=== PATIENT | female | born 1970 | race Caucasian/White ===

== ENCOUNTER → 2018-01-16 | Outpatient (REF) | payer OTHER ==
[2018-01-17 12:20] LABS: HEPATITIS C VIRUS ABY INDEX 0.1 INDEX (<0.8)
== END ==
LOC: M LAB REF 11:00
DX: L81.8 Other specified disorders of pigmentation (principal)
CPT/HCPCS: 86803

== ENCOUNTER 2018-07-15 11:30 | Emergency (ER) | payer OTHER ==
[~2018-07-15] VITALS: Ht 177.8 cm; Wt 126.4 kg
[2018-07-15] MEDS ORDERED: PARO40TA2 (11:41)
[2018-07-15] MEDS ORDERED: ALBU83IN (11:41)
[2018-07-15] MEDS ORDERED: COMBAER6 (11:41)
[2018-07-15] MEDS ORDERED: PROAAER10 (11:41)
[2018-07-15] MEDS ORDERED: LEVO25TA5 (11:41)
[2018-07-15] MEDS ORDERED: LOSARTAN/HCT PO (11:41)
[2018-07-15] MEDS ORDERED: predniSONE 20 MG TAB PO ONE (12:00)
[2018-07-15] MEDS ORDERED: ALBUTEROL SULFATE 2.5 MG/0.5 ML INH NEB SOLN NEB ONE (12:00)
[2018-07-15] MEDS ORDERED: IPRATROPIUM 0.5MG/ALBUTEROL 2.5MG INH SOL UD 3ML (DUONEB)(J7620) NEB ONE (12:00)
[2018-07-15] MEDS ORDERED: IPRA0.00 NEB (12:40)
[2018-07-15] MEDS ORDERED: MUCI600T37 PO (12:40)
[2018-07-15] MEDS ORDERED: PRED10TA2 PO (12:40)
[2018-07-15 13:22] VITALS: BP 136/71
--- NOTE | 2018-07-15 14:12 | REP ---
CHEST, TWO VIEWS: Two views of the chest are performed. There is no acute infiltrate. Heart is normal in size. Mediastinal silhouette is unremarkable and unchanged. There are mild degenerative changes of the spine. There is a rounded sclerotic density in the proximal right humerus. This area is not imaged on the prior chest radiograph of 01/08/2009. This may represent a benign bone island. IMPRESSION: No acute infiltrate. Sclerotic density proximal humerus 1.5 cm in diameter may represent a benign bone island. Recommend further evaluation with bone scan or MRI with contrast. Electronically Signed by Jacob Perez MD 07/15/2018 07:06 P
--- NOTE | 2018-07-17 08:57 | ED PDOC ---
Post-Departure Follow-Up dr gooden faxed formal report of cxr fo rfu Leidy oJ MD Jul 17, 2018 08:57
== END 2018-07-15 13:24 | disposition home or self-care (01) ==
LOC: M ED 11:30
DX: J45.901 Unspecified asthma with (acute) exacerbation (principal); I10 Essential (primary) hypertension; E03.9 Hypothyroidism, unspecified; F41.9 Anxiety disorder, unspecified; Z87.891 Personal history of nicotine dependence; Z91.048 Other nonmedicinal substance allergy status; Z88.2 Allergy status to sulfonamides; Z91.018 Allergy to other foods; Z79.890 Hormone replacement therapy; Z79.899 Other long term (current) drug therapy

== ENCOUNTER → 2018-08-09 | Outpatient (CLI) | payer OTHER ==
[~2018-08-09] MED LIST: ALBU83IN; COMBAER6; IPRA0.00 NEB; LEVO25TA5; LOSARTAN/HCT PO; MUCI600T37 PO; PARO40TA2; PRED10TA2 PO; PROAAER10
--- NOTE | 2018-08-09 15:39 | REP ---
WHOLE BODY BONE SCAN: Following the intravenous administration of 21.1 mCi of technetium 99m MDP, the patient's whole body is imaged in the anterior and posterior projections with additional oblique and lateral views. There are no prior studies for comparison. Recent chest radiograph showed a sclerotic density in the proximal right humerus. No abnormal uptake is seen in the proximal right humerus. There is mild increased uptake in the region of the L3-4 disc space mainly on the right side most consistent with arthritic uptake. There also appears to be arthritic uptake in the knees and feet. There is no definite scintigraphic evidence of suspicious osseous uptake or metastatic disease. Renal and bladder activity are seen. IMPRESSION: No abnormal uptake in the proximal right humerus. The sclerotic density in the proximal right humerus on the recent chest radiograph therefore is not felt to be metabolically active or suspicious. There is no compelling scintigraphic evidence of osseous metastases. There appears to be scattered arthritic uptake as discussed above. Electronically Signed by Jacob Perez MD 08/09/2018 05:15 P
== END ==
LOC: M RAD 11:06
PROVIDERS: ATTEND Internal Medicine
DX: M89.8X2 Other specified disorders of bone, upper arm (principal); M13.811 Other specified arthritis, right shoulder
CPT/HCPCS: 78306; A9503

== ENCOUNTER → 2018-08-23 | Outpatient (CLI) | payer OTHER ==
--- NOTE | 2018-08-29 12:47 | SLEEPCENT ---
DATE OF STUDY: 08/23/2018 ORDERED BY: Merari Orosco NP Nocturnal polysomnography was performed for evaluation of sleep physiology in this patient with a history of snoring, morning headaches and nonrestorative sleep who has comorbidities of hypertension and hypothyroidism. 8 hours and 8 minutes of data were reviewed. There are 304 minutes of sleep identified. Sleep latency was prolonged at 49 minutes. REM latency was prolonged at 105 minutes. Sleep architecture was severely fragmented but improved markedly with evidence of REM rebound after interventions were made. Overall sleep efficiency 63.3%. The patient's electrocardiogram showed a sinus rhythm with an average heart rate of 60 beats per minute. Rate ranged 40-80 beats minute. EEG showed some coarsening in the background otherwise normal waveforms for awake and sleep stages. There were 218 respiratory events identified of 10 seconds in duration or greater for an apnea-hypopnea index of 43. Having clearly established the presence of obstructive sleep apnea syndrome, testing was stopped shortly before 1:00 a.m. for the application of pressure therapy. The patient was fit with a [employer] full face mask of small size, 4 cm of water pressure were applied to the circuit and the lights were extinguished. Throughout the remaining hours of testing, pressure titration was performed for an optimal pressure of +10 with which the patient slept through REM without respiratory event or oxygen desaturation. IMPRESSION: Severe obstructive sleep apnea syndrome (G47.33). Apnea-hypopnea index 43. RECOMMENDATION: Nightly use of pressure therapy 10 cm of water. cc: Carlee Ruffin NP
== END ==
LOC: M SLEEP 19:36
PROVIDERS: ATTEND Nurse Practitioner Adult Health
DX: G47.33 Obstructive sleep apnea (adult) (pediatric) (principal)

== ENCOUNTER → 2021-08-30 | Outpatient (CLI) | payer OTHER ==
[~2021-08-30] MED LIST changes: +GNPTAB36 PO; +HYDR12CA PO; +LOSA100T45 PO
== END ==
LOC: M LABSMTC 09:16
PROVIDERS: ATTEND Anesthesiology
DX: Z11.52 Encounter for screening for COVID-19 (principal); Z20.822 Contact with and (suspected) exposure to COVID-19

== ENCOUNTER 2021-09-03 07:36 | Day surgery (SDC) | payer OTHER ==
[~2021-09-03] VITALS: Ht 177.8 cm; Wt 142.4 kg
[~2021-09-03 07:36] MED LIST changes: +LIDOCAINE 2% 100MG/5ML SDV (FOR ANES.) As Ordered ONE; +NS 1,000 ML IV ONE; +propofoL 200 MG/20 ML VIAL As Ordered ONE
[2021-09-03 09:45] VITALS: BP 133/63
== END 2021-09-03 10:00 | disposition home or self-care (01) ==
LOC: M OPP 07:36
PROVIDERS: ATTEND Internal Medicine Gastroenterology
DX: Z12.11 Encounter for screening for malignant neoplasm of colon (principal); K63.5 Polyp of colon; Z79.899 Other long term (current) drug therapy; Z88.2 Allergy status to sulfonamides; Z91.018 Allergy to other foods; F17.220 Nicotine dependence, chewing tobacco, uncomplicated

== ENCOUNTER → 2021-10-27 | Outpatient (CLI) | payer OTHER ==
[~2021-10-27] MED LIST changes: -LIDOCAINE 2% 100MG/5ML SDV (FOR ANES.) As Ordered ONE; -NS 1,000 ML IV ONE; -propofoL 200 MG/20 ML VIAL As Ordered ONE
== END ==
LOC: M WHC 09:02
PROVIDERS: ATTEND Internal Medicine
DX: Z12.31 Encounter for screening mammogram for malignant neoplasm of breast (principal)

== ENCOUNTER → 2021-11-16 | Outpatient (CLI) | payer OTHER ==
[~2021-11-16] MED LIST changes: +ALBU2.5V10; -ALBU83IN
== END ==
LOC: M RAD 12:01
PROVIDERS: ATTEND Nurse Practitioner Adult Health
DX: J45.40 Moderate persistent asthma, uncomplicated (principal)

== ENCOUNTER 2022-06-21 12:07 | Observation (INO) | payer OTHER ==
[~2022-06-21] VITALS: Ht 175.3 cm; Wt 140.9 kg
[~2022-06-21 12:07] MED LIST changes: -ALBU2.5V10; +ALBU2.5V10 INH; -LEVO25TA5; +LEVO25TA5 PO; -PARO40TA2; +PARO40TA2 PO
[2022-06-21] MEDS ORDERED: ISOVUE-370 76% 100ML VIAL As Ordered ONE (12:33)
[2022-06-21 12:47] LABS: BASO # 0.1 10^3/uL (0.0-0.2); BASO % 0.8 % (0.0-1.0); EOS # 0.3 10^3/uL (0.0-0.5); EOS % 3.5 % (0.0-3.0); HEMATOCRIT 41.3 % (36.0-47.0); HEMOGLOBIN 13.5 g/dl (12.0-15.5); LYMPH % 23.8 % (24.0-44.0); MEAN CORPUSCULAR HEMOGLOBIN 30.1 pg (27.0-33.0); MEAN CORPUSCULAR HGB CONC 32.7 g/dl (32.0-36.5); MONO # 0.4 10^3/uL (0.0-0.8); MONO % 4.9 % (2.0-8.0); NEUTROPHILS # 5.7 10^3/uL (1.5-8.5); NEUTROPHILS % 66.6 % (36.0-66.0); PLATELET COUNT, AUTOMATED 336 10^3/uL (150-450); RED BLOOD COUNT 4.49 10^6/uL (4.00-5.40); WHITE BLOOD COUNT 8.6 10^3/uL (4.0-10.0)
[2022-06-21 13:05] LABS: INR 0.9; PARTIAL THROMBOPLASTIN TIME 26.5 SECONDS (24.8-34.2); PROTHROMBIN TIME 12.3 SECONDS (12.5-14.5)
[2022-06-21 13:11] LABS: CK-MB VALUE MASS < 1.0 NG/ML (<3.6)
[2022-06-21 13:12] LABS: CPK CREATINE PHOSPHOKINASE 145 U/L (34-145); MB/CK RELATIVE INDEX 0.68 (< OR =4)
[2022-06-21 13:20] LABS: RSV AMPLIFICATION NEGATIVE (NEGATIVE)
[2022-06-21] MEDS ORDERED: CLOPIDOGREL 300 MG TAB (PLAVIX) PO STA (14:54)
[2022-06-21] MEDS ORDERED: ASPIRIN 325 MG TAB PO ONE (14:55)
[2022-06-21] MEDS ORDERED: ALBU8.5H INH (15:54)
[2022-06-21] MEDS ORDERED: THERTAB19 PO (15:57)
[2022-06-21 16:00] LABS: CHOLESTEROL RISK RATIO 5.11 (<5); HDL CHOLESTEROL 36.2 MG/DL (>40); HEMOGLOBIN A1c 5.4 % (4.0-6.0)
[2022-06-21] MEDS ORDERED: HOME MED LIST COMPLETE! XX SCH (16:00)
[2022-06-21 16:05] LABS: ALBUMIN 3.4 G/DL (3.2-5.2); ALKALINE PHOSPHATASE 101 U/L (46-116); ALT/SGPT 17 U/L (7.0-40); AST/SGOT 17 U/L (<34); BILIRUBIN,TOTAL 0.5 MG/DL (0.3-1.2); BLOOD UREA NITROGEN 7 MG/DL (9-23); CALCIUM LEVEL 8.2 MG/DL (8.5-10.1); CARBON DIOXIDE LEVEL 29 MMOL/L (20-31); CHLORIDE LEVEL 101 MMOL/L (98-107); CREATININE FOR GFR 0.82 MG/DL (0.55-1.30); GLOMERULAR FILTRATION RATE > 60.0 (>51); GLUCOSE, FASTING 87 MG/DL (60-100); POTASSIUM SERUM 4.4 MMOL/L (3.5-5.1); SODIUM LEVEL 138 MMOL/L (136-145); TOTAL PROTEIN 6.8 G/DL (5.7-8.2)
[2022-06-21] MEDS ORDERED: ALBUTEROL 90 MCG/ACT 8GM HFA INHALER INH PRN (16:35)
[2022-06-21] MEDS ORDERED: ATORVASTATIN 20 MG TAB PO SCH (21:00)
[2022-06-21] MEDS: RIVAROXABAN 10MG TAB (XARELTO) PO SCH ×2 (21:37→22:06)
[2022-06-22] MEDS ORDERED: LEVOTHYROXINE 25MCG TABLET (0.025MG) PO SCH (06:00)
[2022-06-22 06:33] LABS: HEMATOCRIT 38.8 % (36.0-47.0); HEMOGLOBIN 12.4 g/dl (12.0-15.5); MEAN CORPUSCULAR HEMOGLOBIN 30.1 pg (27.0-33.0); MEAN CORPUSCULAR VOLUME 94.2 fl (80.0-96.0); PLATELET COUNT, AUTOMATED 268 10^3/uL (150-450); RED BLOOD COUNT 4.12 10^6/uL (4.00-5.40); WHITE BLOOD COUNT 7.3 10^3/uL (4.0-10.0)
[2022-06-22 06:41] LABS: INR 0.85; PROTHROMBIN TIME 11.8 SECONDS (12.5-14.5)
[2022-06-22 06:57] LABS: BLOOD UREA NITROGEN 10 MG/DL (9-23); CALCIUM LEVEL 7.9 MG/DL (8.5-10.1); CARBON DIOXIDE LEVEL 29 MMOL/L (20-31); CHLORIDE LEVEL 103 MMOL/L (98-107); CREATININE FOR GFR 0.86 MG/DL (0.55-1.30); GLOMERULAR FILTRATION RATE > 60.0 (>51); GLUCOSE, FASTING 91 MG/DL (60-100); POTASSIUM SERUM 4.2 MMOL/L (3.5-5.1); SODIUM LEVEL 140 MMOL/L (136-145)
[2022-06-22] MEDS ORDERED: PARoxetine 20MG TABLET PO SCH (09:00)
[2022-06-22] MEDS ORDERED: CETIRIZINE (ZyrTEC) 10 MG TAB PO SCH (09:00)
[2022-06-22] MEDS ORDERED: CLOPIDOGREL 75 MG TAB PO SCH (09:00)
[2022-06-22] MEDS ORDERED: ASPIRIN 81MG CHEW TABLET PO SCH (09:00)
[2022-06-22 09:45] VITALS: BP 127/57
[2022-06-22 13:45] VITALS: BP 140/61
[2022-06-22] MEDS ORDERED: ASPI81CH8 PO (14:41)
[2022-06-22] MEDS ORDERED: ATOR1TAB21 PO (14:41)
[2022-06-22] MEDS ORDERED: CLOP75TA2 PO (14:41)
[2022-06-22 17:53] VITALS: BP 133/64
[2022-06-23] MEDS ORDERED: ENOXAPARIN 40MG/0.4ML SYRINGE (J1650 PER 10MG) SC SCH (09:00)
[2022-06-23 12:16] LABS: DRVV SCREEN 44.1 SEC
[2022-06-23 12:20] LABS: PTT LUPUS TYPE ANTICOAG SCREEN 1.1 (0-1.2)
== END 2022-06-22 17:55 | disposition home or self-care (01) ==
LOC: M ED 12:07 → M ED INP 12:08
PROVIDERS: ADMIT Student in an Organized Health Care Education/Training Program; ATTEND Student in an Organized Health Care Education/Training Program
DX: G45.9 Transient cerebral ischemic attack, unspecified (principal); I10 Essential (primary) hypertension; E03.9 Hypothyroidism, unspecified; F32.A Depression, unspecified; F41.9 Anxiety disorder, unspecified; J30.1 Allergic rhinitis due to pollen; R20.0 Anesthesia of skin; R47.81 Slurred speech; R29.701 NIHSS score 1; I44.0 Atrioventricular block, first degree; E66.9 Obesity, unspecified; F17.200 Nicotine dependence, unspecified, uncomplicated; Z79.899 Other long term (current) drug therapy; Z79.82 Long term (current) use of aspirin; Z88.2 Allergy status to sulfonamides; Z91.018 Allergy to other foods; Z82.3 Family history of stroke

== ENCOUNTER → 2022-06-27 | Outpatient (REF) | payer OTHER ==
[~2022-06-27] MED LIST changes: +ALBU8.5H INH; +ASPI81CH8 PO; +ATOR1TAB21 PO; +CLOP75TA2 PO; +THERTAB19 PO
== END ==
LOC: M LAB REF 16:15
PROVIDERS: ATTEND Internal Medicine
DX: G60.9 Hereditary and idiopathic neuropathy, unspecified (principal)

== ENCOUNTER → 2022-06-28 | Outpatient (CLI) | payer OTHER | LOC: M RAD 08:44 | PROVIDERS: ATTEND Internal Medicine | DX: M50.321 Other cervical disc degeneration at C4-C5 level (principal); M47.812 Spondylosis without myelopathy or radiculopathy, cervical region; M54.12 Radiculopathy, cervical region ==

== ENCOUNTER → 2022-07-13 | Outpatient (CLI) | payer OTHER | LOC: M RAD 10:51 | PROVIDERS: ATTEND Internal Medicine | DX: M50.10 Cervical disc disorder with radiculopathy, unspecified cervical region (principal); M50.221 Other cervical disc displacement at C4-C5 level; M50.222 Other cervical disc displacement at C5-C6 level; M50.223 Other cervical disc displacement at C6-C7 level ==

== ENCOUNTER → 2023-06-06 | Outpatient (CLI) | payer OTHER ==
[~2023-06-06] MED LIST changes: -LOSA100T45 PO; +LOSA100T46 PO
== END ==
LOC: M WHC 11:17
PROVIDERS: ATTEND Internal Medicine
DX: Z12.31 Encounter for screening mammogram for malignant neoplasm of breast (principal)

== ENCOUNTER → 2023-09-07 | Outpatient (CLI) | payer OTHER | LOC: M RAD 09:05 | PROVIDERS: ATTEND Internal Medicine | DX: M79.89 Other specified soft tissue disorders (principal) ==

== ENCOUNTER → 2023-12-01 | Outpatient (REF) | payer OTHER | LOC: M LAB REF 16:17 | PROVIDERS: ATTEND Internal Medicine | DX: M62.838 Other muscle spasm (principal) ==

== ENCOUNTER → 2024-01-23 | Outpatient (CLI) | payer OTHER | LOC: M PLAIMG 14:36 | PROVIDERS: ATTEND Internal Medicine | DX: I48.91 Unspecified atrial fibrillation (principal) ==

== ENCOUNTER → 2024-07-08 | Outpatient (CLI) | payer OTHER | LOC: M RAD 10:20 | PROVIDERS: ATTEND Physician Assistant Medical | DX: R20.2 Paresthesia of skin (principal) ==

== ENCOUNTER → 2024-12-19 | Outpatient (CLI) | payer OTHER ==
[2024-12-19 17:41] LABS: CALCIUM LEVEL 9.0 MG/DL (8.5-10.1); CARBON DIOXIDE LEVEL 30.0 MMOL/L (20-31); CHLORIDE LEVEL 102.0 MMOL/L (98-107); CREATININE FOR GFR 1.01 MG/DL (0.55-1.30); GLOMERULAR FILTRATION RATE 65.3 (>51); POTASSIUM SERUM 3.8 MMOL/L (3.5-5.1); SODIUM LEVEL 143.0 MMOL/L (136-145)
[2024-12-19 17:51] LABS: PLATELET COUNT, AUTOMATED 301 10^3/uL (150-450)
== END ==
LOC: M WUC 12:59
DX: I48.91 Unspecified atrial fibrillation (principal)

== ENCOUNTER → 2025-01-21 | Outpatient (REF) | payer OTHER ==
[~2025-01-21] MED LIST changes: +HYDR12.510 PO; -HYDR12CA PO
[2025-01-21 12:11] LABS: INR 1.47
== END ==
LOC: M LABDRAWC 11:53
DX: I48.91 Unspecified atrial fibrillation (principal)

== ENCOUNTER → 2025-01-28 | Outpatient (REF) | payer OTHER ==
[2025-01-28 12:21] LABS: INR 1.86
== END ==
LOC: M LABDRAWC 11:51
DX: I48.91 Unspecified atrial fibrillation (principal)

== ENCOUNTER → 2025-02-04 | Outpatient (REF) | payer OTHER ==
[2025-02-04 11:54] LABS: INR 1.83
== END ==
LOC: M LABDRAWC 11:36
DX: I48.91 Unspecified atrial fibrillation (principal)

== ENCOUNTER → 2025-02-12 | Outpatient (REF) | payer OTHER ==
[2025-02-12 12:25] LABS: INR 1.74
== END ==
LOC: M LAB REF 11:33
PROVIDERS: ATTEND Physician Assistant Medical
DX: I48.91 Unspecified atrial fibrillation (principal)

== ENCOUNTER → 2025-02-25 | Outpatient (REF) | payer OTHER ==
[2025-02-25 12:21] LABS: INR 1.2
== END ==
LOC: M LABDRAWC 11:57
DX: I48.91 Unspecified atrial fibrillation (principal)

== ENCOUNTER → 2025-02-25 | Outpatient (CLI) | payer OTHER | LOC: M CLY 07:28 | PROVIDERS: ATTEND Physician Assistant Medical | DX: M25.512 Pain in left shoulder (principal); M19.012 Primary osteoarthritis, left shoulder ==

== ENCOUNTER → 2025-03-04 | Outpatient (REF) | payer OTHER ==
[2025-03-04 12:19] LABS: INR 1.99
== END ==
LOC: M LABDRAWC 11:52
DX: I48.91 Unspecified atrial fibrillation (principal)

== ENCOUNTER → 2025-03-13 | Outpatient (REF) | payer OTHER | LOC: M LABDRAWC 11:49 | DX: I48.91 Unspecified atrial fibrillation (principal) ==

== ENCOUNTER → 2025-03-25 | Outpatient (REF) | payer OTHER ==
[2025-03-25 12:56] LABS: INR 1.86
== END ==
LOC: M LABDRAWC 12:20
DX: I48.91 Unspecified atrial fibrillation (principal)

== ENCOUNTER → 2025-04-01 | Outpatient (REF) | payer OTHER ==
[2025-04-01 12:43] LABS: INR 2.82
== END ==
LOC: M LAB REF 11:41 → M LABDRAWC 11:41
DX: I48.91 Unspecified atrial fibrillation (principal)

== ENCOUNTER → 2025-04-09 | Outpatient (REF) | payer OTHER ==
[2025-04-09 17:16] LABS: INR 1.58
== END ==
LOC: M LABDRAWC 16:43
DX: I48.91 Unspecified atrial fibrillation (principal)

== ENCOUNTER → 2025-04-22 | Outpatient (REF) | payer OTHER ==
[2025-04-22 12:40] LABS: INR 0.98
== END ==
LOC: M LABDRAWC 11:48
DX: I48.91 Unspecified atrial fibrillation (principal)

== ENCOUNTER → 2025-05-06 | Outpatient (REF) | payer OTHER ==
[2025-05-06 12:37] LABS: INR 1.28
== END ==
LOC: M LABDRAWC 11:55
DX: I48.91 Unspecified atrial fibrillation (principal)

== ENCOUNTER → 2025-05-21 | Outpatient (REF) | payer OTHER ==
[2025-05-21 12:24] LABS: INR 2.12
== END ==
LOC: M LABWUC 11:49 → M LABDRAWC 11:49
DX: I48.91 Unspecified atrial fibrillation (principal)

== ENCOUNTER → 2025-06-04 | Outpatient (CLI) | payer OTHER ==
[2025-06-04 14:26] LABS: INR 1.18
== END ==
LOC: M WUC 12:42
DX: I48.91 Unspecified atrial fibrillation (principal)